=== PATIENT | male | born 1955 | race Caucasian/White ===

== ENCOUNTER 2018-05-15 14:34 | Emergency (ER) | payer SELFPAY ==
[~2018-05-15] VITALS: Ht 177.8 cm; Wt 90.9 kg
[2018-05-15 14:39] VITALS: BP 171/92; Ht 177.8 cm; Wt 90.9 kg
[2018-05-15 15:23] LABS: APPEARANCE CLEAR (CLEAR); COLOR YELLOW (YELLOW)
[2018-05-15 15:24] LABS: BILIRUBIN NEGATIVE (NEGATIVE); GLUCOSE NEGATIVE (NEGATIVE); KETONE NEGATIVE (NEGATIVE); NITRITE NEGATIVE (NEGATIVE); PROTEIN TRACE mg/dL (NEGATIVE); UROBILINOGEN NORMAL (NORMAL)
[2018-05-15 15:33] LABS: BASOPHILS 0.4 % (0-2); EOSINOPHILS 1.2 % (0-7); HEMATOCRIT 46.7 % (42.0-54.0); IMMATURE GRANULOCYTES 0.4 % (0-5); LYMPHOCYTES 27.2 % (15-50); MCHC 34.3 g/dL (31.0-37.0); MCV 81.6 fL (80.0-100.0); MEAN PLATELET VOLUME 9.7 fL (7.4-10.4); MONOCYTES 14.1 % (2-11); NEUTROPHILS 56.7 % (40-80); PLATELET COUNT 380 10x3/uL (130-400); RBC 5.72 10x6/uL (4.20-6.10); RDW 13.9 % (11.5-14.5); WBC 10.1 10x3/uL (4.8-10.8)
[2018-05-15 15:49] LABS: ALBUMIN 3.2 g/dL (3.4-5.0); ALKALINE PHOSPHATASE 112 U/L (46-116); ALT (SGPT) 33 U/L (10-68); BILIRUBIN - TOTAL 0.16 mg/dL (0.2-1.3); CALC OSMOLALITY 278 mosm/kg (275-300); CALCIUM 8.6 mg/dL (8.5-10.1); CARBON DIOXIDE 29.6 mmol/L (21.0-32.0); CHLORIDE - SERUM 101 mmol/L (98-107); CREATININE - SERUM 1.1 mg/dL (0.6-1.3); GLUCOSE 93 mg/dL (74-106); POTASSIUM - SERUM 3.9 mmol/L (3.5-5.1); PROTEIN - SERUM 7.2 g/dL (6.4-8.2); SODIUM 139 mmol/L (136-145); UREA NITROGEN 15 mg/dL (7-18); eGFR NON AFRICAN AMERICAN 72 mL/min (90-120)
[2018-05-15 16:02] LABS: AMYLASE - SERUM 65 U/L (25-115); CKMB 0.9 U/L (0.0-3.6); CREATINE KINASE 42 UL (21-232); LIPASE 188 U/L (73-393); PRO BNP 112 pg/mL (0-125); THYROID STIMULATING HORMONE 1.55 uIU/mL (0.36-3.74); TROPONIN-I < 0.017 ng/mL (0.000-0.060)
== END 2018-05-15 17:55 | disposition left against medical advice (07) ==
LOC: D.ER 14:34
PROVIDERS: Family Medicine
DX: I10 Essential (primary) hypertension (principal); R06.02 Shortness of breath